=== PATIENT | male | born 1990 | race American Indian/Alaskan Native ===

== ENCOUNTER 2016-09-03 02:48 | Emergency (ER) | payer SELFPAY ==
[2016-09-03 02:57] VITALS: BP 129/98
--- NOTE | 2016-09-03 03:08 | Emergency Department Report ---
HPI - General Chief Complaint: Back Pain/Injury Time Seen by Provider: 09/03/16 03:01 - HPI HPI: Patient is a 26-year-old male presents to ED complaining of pain to the middle of his back that started 8 PM this last night patient states he was at work standing when he experienced a sharp pain to the middle of his back. Patient states the pain has become steady now and causes intense catch his breath sometimes. He denies radiation of pain elsewhere. Patient states pain is worsened with movement. Patient denies fevers/chills/nausea/vomiting/chest pain /shortness of breath/abdominal pain/constipation or diarrhea ED Past Medical Hx - Past Medical History Previous Medical History?: No Additional medical history: Back pain, right hip pain - Surgical History Past Surgical History?: No - Social History Smoking Status: Never Smoker Substance Use Type: Alcohol, Non Opiate Pain - Medications Home Medications: Home Medications Medication Instructions Recorded Confirmed Last Taken Type ALBUTEROL Inhaler [ProAir HFA 2 puff IH QID PRN #1 inhalation 01/25/14 Unknown Rx Inhaler] Azithromycin [Zithromax Z-DOTTY] 250 mg PO DAILY #6 tablet 01/25/14 Unknown Rx Prednisone [Prednisone 10 mg 10 mg PO .TAPER #1 tab.ds.pk 01/25/14 Unknown Rx (6-Day Pack, 21 Tabs)] Azithromycin [Zithromax Z-DOTTY] 250 mg PO DAILY #6 tablet 03/15/14 Unknown Rx HYDROcodone/APAP 10-325 [[place] 1 each PO Q4-6H PRN #16 tablet 03/15/14 Unknown Rx 10-325 mg TAB] Ondansetron [Zofran Odt] 4 mg SL Q6H PRN #10 tab.rapdis 03/15/14 Unknown Rx Fexofenadine/Pseudoephedrine 1 each PO QAM #7 tab.er.24h 11/13/15 Unknown Rx [Chaparrita-D 24 Hour Tablet] Fluticasone [Flonase] 1 spray NS QDAY #1 bottle 11/13/15 Unknown Rx predniSONE [Deltasone] 50 mg PO QDAY #5 tab 11/13/15 Unknown Rx Acetaminophen/Codeine [Tylenol 1 tab PO Q6H PRN #14 tab 09/03/16 Unknown Rx /Codeine # 3 tab] Cyclobenzaprine [Flexeril] 10 mg PO TID PRN #20 tablet 09/03/16 Unknown Rx Ibuprofen [Motrin 600 MG tab] 600 mg PO Q8H PRN #14 tablet 09/03/16 Unknown Rx ED Review of Systems ROS: Stated complaint: NAIMA/BACK PAIN Other details as noted in HPI Constitutional: denies: chills, fever Eyes: denies: eye pain, eye discharge, vision change ENT: denies: ear pain, throat pain Respiratory: denies: cough, shortness of breath, wheezing Cardiovascular: denies: chest pain, palpitations Endocrine: no symptoms reported Gastrointestinal: denies: abdominal pain, nausea, diarrhea Genitourinary: denies: urgency, dysuria Musculoskeletal: denies: back pain, joint swelling, arthralgia Skin: denies: rash, lesions Neurological: denies: headache, weakness, paresthesias Psychiatric: denies: anxiety, depression Hematological/Lymphatic: denies: easy bleeding, easy bruising Physical Exam - Physical Exam Vital Signs: Vital Signs 09/03/16 02:53 Temperature 98.5 F Pulse Rate 74 Respiratory 20 Rate Blood Pressure 129/98 Blood Pressure 129/96 [Right] O2 Sat by Pulse 98 Oximetry Physical Exam: GENERAL: Alert and oriented x3, no apparent distress, Normal Gait, atraumatic. HEAD: Head is normocephalic and a-traumatic. EYES: Extra ocular muscles are intact. Pupils are equal, round, and reactive to light and accommodation. NECK: Supple. Non edematous, No carotid bruits. No lymphadenopathy or thyromegaly. No C-spine tenderness LUNGS: Symetrical with respiration, No wheezing, no rales or crackles, CTAB. HEART: S1, S2 present, regular rate and rhythm without murmur, no rubs, no gallops. Non tender to palpation ABDOMEN: No organomegaly was noted,Positive bowel sounds, soft, and non- distended. No pulsatile mass . Nontender to palpation on all Quadrants, NO CVA tenderness. Tenderness palpation of the dorsi muscles NEUROLOGIC: The patient is cooperative with no focal neurologic deficits. Cranial nerves II through XII are grossly intact. Normal speech. SKIN: Warm and dry, No lesions, No ulceration or induration present. ED Course Vital Signs 09/03/16 02:53 Temperature 98.5 F Pulse Rate 74 Respiratory 20 Rate Blood Pressure 129/98 Blood Pressure 129/96 [Right] O2 Sat by Pulse 98 Oximetry ED Medical Decision Making - Radiology Data Radiology results: report reviewed, image reviewed FINAL REPORT PROCEDURE: CT ABDOMEN WO CON TECHNIQUE: Computerized axial tomography of the abdomen was performed without intravenous contrast. This study is performed without intravascular contrast material and its sensitivity for abdominal and pelvic pathology, including neoplasms, inflammation, abscess, free fluid, thrombosis, arterial dissection and infarction, is reduced compared with a contrast enhanced study. HISTORY: mid back pain COMPARISON: No prior studies are available for comparison. FINDINGS: Visualized lower thorax: No significant abnormality. Liver: Normal size and attenuation. Spleen: Normal size and attenuation. Gallbladder and biliary system: Normal. Pancreas: Normal. Adrenals: Normal. Kidneys: There are no kidney stones or ureteral stones. There is no hydronephrosis.. GI tract: There is a large amount of stool in the colon. There is no obstruction, colitis or enteritis. The the appendix is visualized and is normal.. Lymph nodes and mesentery: Normal. Vasculature: Normal. Peritoneum: There is no ascites, free air, abscess or adenopathy.. Musculoskeletal structures: No significant abnormality. IMPRESSION: There is no acute intra-abdominal abnormality. Transcribed By: CO Dictated By: KAYLENE COKER MD Electronically Authenticated By: KAYLENE COKER MD Signed Date/Time: 09/03/16 0424 - Medical Decision Making 26-year-old male presents with back strain ED course: he received Toradol ED. Chest x-ray and CT of the abdomen obtained. Chest x-ray normal cardiopulmonary assess. CT scan normal- see above Discussed patient to a back brace while lifting or moving heavy stuffs at work Discuss heat therapy 3 times a day. Discussed the patient to follow up with primary care physician Discussed worsening symptoms or new symptoms arise to return to ED. Vital signs are normal patient is in no acute distress. Patient understands instructions given follow-up Critical care attestation.: If time is entered above; I have spent that time in minutes in the direct care of this critically ill patient, excluding procedure time. ED Disposition Clinical Impression: Back pain of thoracolumbar region Disposition: DC-01 TO HOME OR SELFCARE Is pt being admited?: No Does the pt Need Aspirin: No Condition: Stable Instructions: Acute Low Back Pain (ED), Back Pain (ED), Trigger Point Pain (ED) , Heat Pack Application (ED) Prescriptions: Acetaminophen/Codeine [Tylenol /Codeine # 3 tab] 1 tab PO Q6H PRN #14 tab PRN Reason: Pain Cyclobenzaprine [Flexeril] 10 mg PO TID PRN #20 tablet PRN Reason: Muscle Spasm Ibuprofen [Motrin 600 MG tab] 600 mg PO Q8H PRN #14 tablet PRN Reason: Pain Referrals: PRIMARY CARE,MD [Primary Care Provider] - 3-5 Days [facility] [Outside] - 3-5 Days [facility] [Outside] - 3-5 Days Forms: Accompanied Note, Work/School Release Form Time of Disposition: 05:02
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
[2016-09-03] MEDS ORDERED: TORADOL IM ONE (04:56)
== END 2016-09-03 06:00 | disposition home or self-care (01) ==
LOC: ED 02:48
DX: M54.6 Pain in thoracic spine (principal); M54.5 Low back pain
CPT/HCPCS: 71020; 74150; 96372; 99284; J1885

== ENCOUNTER 2016-09-26 19:11 | Emergency (ER) | payer OTHER ==
[2016-09-26] MEDS ORDERED: TYLENOL PO ONE (19:46)
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
[2016-09-27 00:09] VITALS: BP 119/67
== END 2016-09-27 00:08 | disposition home or self-care (01) ==
LOC: ED 19:11
DX: S39.012A Strain of muscle, fascia and tendon of lower back, initial encounter (principal); S20.212A Contusion of left front wall of thorax, initial encounter; X58.XXXA Exposure to other specified factors, initial encounter; Y93.9 Activity, unspecified; Y92.9 Unspecified place or not applicable; Y99.9 Unspecified external cause status
CPT/HCPCS: 72100

== ENCOUNTER 2017-09-08 20:45 | Emergency (ER) | payer SELFPAY ==
--- NOTE | 2017-09-08 21:52 | Cat Scan Report ---
FINAL REPORT EXAM: CT HEAD/BRAIN WO CON HISTORY: headache TECHNIQUE: CT was performed from the foramen magnum through the vertex in the axial plane without the use of intravenous contrast. PRIORS: None. FINDINGS: The miller/white matter attenuation pattern is normal. There is no mass lesion or mass effect. There are no abnormal extra-axial fluid collections. There is no evidence of acute intracranial hemorrhage or infarct. The ventricles are of normal size and configuration. The skull and orbits are unremarkable. The visualized paranasal sinuses are clear. IMPRESSION: Normal CT of the head.
[2017-09-09] MEDS ORDERED: REGLAN IV ONE (00:11)
[2017-09-09] MEDS ORDERED: NACL 0.9% 1000 ML 1,000 ML IV ONE (00:11)
[2017-09-09] MEDS ORDERED: TORADOL IV ONE (00:12)
[2017-09-09] MEDS ORDERED: NORCO 5/325 PO ONE (01:21)
[2017-09-09 01:26] VITALS: BP 117/76
--- NOTE | 2017-09-09 01:50 | Emergency Department Report ---
HPI - General Chief Complaint: Headache Time Seen by Provider: 09/08/17 23:43 - HPI HPI: 27-year-old male presents to the emergency department with complaint of a 2 day history of a headache that is mostly to the middle of his forehead, behind the eyes. He denies any fever, nausea, vomiting, vision change , slurred speech or any neurological deficits. Currently the headache is 9 out of 10 in intensity. He says that the intensity of the headache waxes and wanes. He tried some ibuprofen for his symptoms without much relief. He denies any other past medical history. He does not have a primary care physician. No recent travel or sick contacts at home. ED Past Medical Hx - Past Medical History Previous Medical History?: Yes Additional medical history: Back pain, right hip pain - Surgical History Past Surgical History?: No - Social History Smoking Status: Current Some Day Smoker Substance Use Type: None - Medications Home Medications: Home Medications Medication Instructions Recorded Confirmed Last Taken Type ALBUTEROL Inhaler [ProAir HFA 2 puff IH QID PRN #1 inhalation 01/25/14 Unknown Rx Inhaler] Azithromycin [Zithromax Z-DOTTY] 250 mg PO DAILY #6 tablet 01/25/14 Unknown Rx Prednisone [Prednisone 10 mg 10 mg PO .TAPER #1 tab.ds.pk 01/25/14 Unknown Rx (6-Day Pack, 21 Tabs)] Azithromycin [Zithromax Z-DOTTY] 250 mg PO DAILY #6 tablet 03/15/14 Unknown Rx HYDROcodone/APAP 10-325 [Hadley 1 each PO Q4-6H PRN #16 tablet 03/15/14 Unknown Rx 10-325 mg TAB] Ondansetron [Zofran Odt] 4 mg SL Q6H PRN #10 tab.rapdis 03/15/14 Unknown Rx Fexofenadine/Pseudoephedrine 1 each PO QAM #7 tab.er.24h 11/13/15 Unknown Rx [Chaparrita-D 24 Hour Tablet] Fluticasone [Flonase] 1 spray NS QDAY #1 bottle 11/13/15 Unknown Rx predniSONE [Deltasone] 50 mg PO QDAY #5 tab 11/13/15 Unknown Rx Acetaminophen/Codeine [Tylenol 1 tab PO Q6H PRN #14 tab 09/03/16 Unknown Rx /Codeine # 3 tab] Cyclobenzaprine [Flexeril] 10 mg PO TID PRN #20 tablet 09/03/16 Unknown Rx Ibuprofen [Motrin 600 MG tab] 600 mg PO Q8H PRN #14 tablet 09/03/16 Unknown Rx Acetaminophen/Codeine [Tylenol 1 tab PO Q6H PRN #20 tab 09/26/16 Unknown Rx /Codeine # 3 tab] Cyclobenzaprine HCl [Flexeril 5 MG 5 mg PO TID #18 tab 09/26/16 Unknown Rx TAB] Naproxen [Naprosyn TAB] 500 mg PO BID #20 tablet 09/26/16 Unknown Rx ED Review of Systems ROS: Stated complaint: HEADACHE Other details as noted in HPI Comment: All other systems reviewed and negative Constitutional: denies: chills, fever Eyes: denies: eye pain, eye discharge, vision change ENT: denies: ear pain, throat pain Respiratory: denies: cough, shortness of breath, wheezing Cardiovascular: denies: chest pain, palpitations Gastrointestinal: denies: abdominal pain, nausea, diarrhea Genitourinary: denies: urgency, dysuria Musculoskeletal: denies: back pain, joint swelling, arthralgia Skin: denies: rash, lesions Neurological: headache. denies: numbness Physical Exam - Physical Exam Vital Signs: Vital Signs 09/08/17 09/08/17 09/09/17 20:44 20:52 00:01 Temperature 98.6 F 98.6 F Pulse Rate 66 59 L Respiratory 16 16 Rate Blood Pressure 137/78 137/78 128/81 Blood Pressure [Left] O2 Sat by Pulse 100 100 100 Oximetry 09/09/17 09/09/17 00:09 01:00 Temperature 98.2 F Pulse Rate 53 L Respiratory 19 Rate Blood Pressure 117/76 Blood Pressure 115/77 [Left] O2 Sat by Pulse 100 99 Oximetry Physical Exam: GENERAL: The patient is well-developed well-nourished. HENT: Normocephalic. Atraumatic. Patient has moist mucous membranes. EYES: Extraocular motions are intact. Pupils equal reactive to light bilaterally. No nystagmus. NECK: Supple. Trachea is midline. CHEST/LUNGS: Clear to auscultation. There is no respiratory distress noted. HEART/CARDIOVASCULAR: Regular. There is no tachycardia. There is no murmur. ABDOMEN: Abdomen is soft, nontender. Patient has normal bowel sounds. SKIN: Skin is warm and dry. NEURO: The patient is awake, alert, and oriented. The patient is cooperative. The patient has no focal neurologic deficits. The patient has normal speech. Cranial nerves II through XII grossly intact. MUSCULOSKELETAL: There is no tenderness or deformity. There is no limitation range of motion. There is no evidence of acute injury. ED Course Vital Signs 09/08/17 09/08/17 09/09/17 20:44 20:52 00:01 Temperature 98.6 F 98.6 F Pulse Rate 66 59 L Respiratory 16 16 Rate Blood Pressure 137/78 137/78 128/81 Blood Pressure [Left] O2 Sat by Pulse 100 100 100 Oximetry 09/09/17 09/09/17 00:09 01:00 Temperature 98.2 F Pulse Rate 53 L Respiratory 19 Rate Blood Pressure 117/76 Blood Pressure 115/77 [Left] O2 Sat by Pulse 100 99 Oximetry ED Medical Decision Making - Radiology Data Radiology results: report reviewed CT of the head does not show any acute intracranial process including no ischemia, shift, mass, bleeding or skull fracture. - Medical Decision Making Patient presents with a 2 day history of a frontal headache that radiates behind the eyes. He calls it a migraine headache but has never been diagnosed with any previous migraines. There is no focal, motor or sensory deficits and his cranial nerves are intact. He had a CT scan of the head without contrast done through triage that came back resulted as normal. The patient was given some IV fluid, Toradol and Reglan and his headache went down to a 3 out of 10 in intensity. He was actually sleeping when approached for reevaluation. He appears safe for discharge home at this time. He was given a Hadley prior to discharge, with his girlfriend driving home, to finish off his headache. He'll be given a referral for primary care for follow-up. He has been encouraged to return to the emergency Department with any worsening of his symptoms or any acute distress. - Differential Diagnosis migraine, tension headache, cluster headache, brain bleed Critical Care Time: No Critical care attestation.: If time is entered above; I have spent that time in minutes in the direct care of this critically ill patient, excluding procedure time. ED Disposition Clinical Impression: Headache Qualifiers: Headache type: unspecified Headache chronicity pattern: unspecified pattern Intractability: not intractable Qualified Code(s): R51 - Headache Disposition: DC- TO HOME OR SELFCARE Is pt being admited?: No Condition: Stable Instructions: Acute Headache (ED) Additional Instructions: Please follow up with the primary care physician in the next few days. Return to the emergency Department with any worsening of your symptoms or any acute distress. Referrals: PRIMARY MD FEMI [Primary Care Provider] - 3-5 Days SENAIT SAEZ MD [Staff Physician] - 3-5 Days LEXX MANCIA MD [Staff Physician] - 3-5 Days [facility] [Outside] - 3-5 Days Time of Disposition: 01:49
== END 2017-09-09 02:08 | disposition home or self-care (01) ==
LOC: ED 20:45
DX: R51 Headache (principal); Z72.0 Tobacco use
CPT/HCPCS: 70450; 96374; 96375; 99283; J1885; J2765; J7030